=== PATIENT | male | born 1985 | race African-American/Black ===

== ENCOUNTER 2017-05-20 20:36 | Emergency (ER) | payer BC ==
--- NOTE | 2017-05-20 22:09 | RAD ---
RIGHT KNEE RADIOGRAPHS FOUR VIEWS 05/20/17 PROVIDED CLINICAL HISTORY: Right knee pain status post injury. FINDINGS: There is no evidence for fracture or other acute osseous abnormality. 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 There is patella taylor. Alignment appears otherwise anatomic. Joint spaces appear preserved. IMPRESSION: 1. Patella taylor is noted. 2. No evidence for an acute osseous abnormality. POS: [facility]
== END 2017-05-20 21:50 | disposition home or self-care (01) ==
LOC: SCSER 20:36
DX: S83.91XA Sprain of unspecified site of right knee, initial encounter (principal); X50.9XXA Other and unspecified overexertion or strenuous movements or postures, initial encounter; Y93.67 Activity, basketball
CPT/HCPCS: 99406

== ENCOUNTER 2017-07-06 16:26 | Outpatient (CLI) | payer BC | END 2017-07-06 16:27 | disposition home or self-care (01) | LOC: BICMRI 16:26 | PROVIDERS: ATTEND Family Medicine | DX: M25.561 Pain in right knee (principal); M76.51 Patellar tendinitis, right knee; M89.8X8 Other specified disorders of bone, other site ==

== ENCOUNTER 2017-07-08 15:04 | Outpatient (CLI) | payer BC ==
[2017-07-08 15:21] LABS: Hemoglobin 14.9 g/dL (14.0-18.0); Mean Corpuscular HGB CONC 33.2 g/dL (32.0-36.0); Mean Corpuscular Hemoglobin 28.6 pg (27.0-31.0); Mean Corpuscular Volume 86.1 fl (80.0-94.0); Mean Platelet Volume 6.8 fL (7.4-10.4); Platelet Count 274 thou/uL (130-400); RBC Distribution Width 12.7 % (11.5-14.5); White Blood Cell (WBC) Count 7.9 thou/uL (4.8-10.8)
== END 2017-07-08 15:05 | disposition home or self-care (01) ==
LOC: LABBT 15:04
PROVIDERS: ATTEND Orthopaedic Surgery
DX: Z01.818 Encounter for other preprocedural examination (principal)
CPT/HCPCS: 85027

== ENCOUNTER 2017-07-10 06:53 | Observation (INO) | payer BC ==
[2017-07-08 15:20] VITALS: BMI 36.5
[2017-07-10] MEDS ORDERED: Fentanyl 100 MCG/2 ML VIAL ONE ×2 (08:05→09:00)
[2017-07-10] MEDS ORDERED: Midazolam HCl 2 mg/2 ml Vial ONE ×2 (08:05→09:00)
[2017-07-10] MEDS ORDERED: Promethazine HCl 25 MG/ML VIAL IM PRN (08:34)
[2017-07-10] MEDS ORDERED: HYDROcodone/Acetaminophen 10/325 mg Tablet PO PRN (08:34)
[2017-07-10] MEDS ORDERED: Ropivacaine 0.2% 550 ML 550 ML NERVE BLCK SCH (08:34)
[2017-07-10] MEDS ORDERED: CEFAZOLIN/Water 2 GM/20 ML SYRINGE ONE (08:34)
[2017-07-10] MEDS ORDERED: Ketorolac Tromethamine 30 MG/ML VIAL IVP PRN (08:34)
[2017-07-10] MEDS ORDERED: Ondansetron HCl/PF 4 MG/2 ML Vial IVP PRN ×2 (08:34→12:08)
[2017-07-10] MEDS ORDERED: Zolpidem Tartrate 5 MG TAB PO PRN (08:34)
[2017-07-10] MEDS ORDERED: traMADol HCl 50 MG TAB PO PRN ×2 (08:34)
[2017-07-10] MEDS ORDERED: Fentanyl 100 MCG/2 ML VIAL IV PRN (08:35)
[2017-07-10] MEDS ORDERED: Bupivacaine PF 0.5% 30 ML VIAL ONE (09:01)
[2017-07-10] MEDS ORDERED: Vancomycin HCl 1.5 GM in Sodium Chloride 0.9% 250 ML 300 ML IVPB SCH (10:00)
[2017-07-10] MEDS ORDERED: Morphine 10 MG/ML VIAL ONE (10:46)
[2017-07-10] MEDS ORDERED: Acetaminophen 500 MG TAB PO PRN (11:29)
[2017-07-10] MEDS ORDERED: Methocarbamol 500 MG TAB PO PRN (11:29)
[2017-07-10] MEDS ORDERED: Bisacodyl 10 MG SUPP PR PRN (11:29)
[2017-07-10] MEDS ORDERED: Morphine 4 MG/ML Carpuject SLOW IVP PRN ×2 (11:29→12:08)
[2017-07-10] MEDS ORDERED: diphenhydrAMINE 50 MG CAP PO PRN (11:29)
[2017-07-10] MEDS ORDERED: Milk Of Magnesia 30 ML UDCUP PO PRN (11:29)
[2017-07-10] MEDS ORDERED: Non-Formulary Medication 1 EACH PO PRN (12:08)
[2017-07-10] MEDS ORDERED: Morphine Sulfate 2 MG/ML SYRINGE SLOW IVP PRN (12:08)
[2017-07-10] MEDS ORDERED: Promethazine HCl 25 MG/ML VIAL IM/IV PRN (12:08)
[2017-07-10] MEDS ORDERED: Ropivacaine 0.5% HCl/PF (150 MG/30 ML VIAL) ONE (13:57)
[2017-07-10] MEDS ORDERED: Ropivacaine 0.2% HCl/PF (40 MG/20 ML VIAL) ONE (13:57)
[2017-07-10] MEDS ORDERED: diphenhydrAMINE 50 MG/ML VIAL ONE (14:24)
[2017-07-10] MEDS ORDERED: Ketorolac Tromethamine 30 MG/ML VIAL ONE (14:24)
[2017-07-10] MEDS ORDERED: Ondansetron HCl/PF 4 MG/2 ML Vial ONE (14:24)
[2017-07-10] MEDS ORDERED: Lidocaine 1% PF 5 ML VIAL ONE (14:24)
[2017-07-10] MEDS ORDERED: Dexamethasone 20 MG/5 ML VIAL ONE (14:24)
[2017-07-10] MEDS ORDERED: Propofol 200 MG/20 ML VIAL ONE (14:24)
[2017-07-10] MEDS ORDERED: Metoclopramide HCl 10 MG/2 ML VIAL ONE (14:24)
[2017-07-10] MEDS: HYDROcodone/Acetaminophen 10/325 mg Tablet PO PRN ×2 (14:41→20:51)
[2017-07-10] MEDS: CEFAZOLIN/Water 2 GM/20 ML SYRINGE SLOW IVP SCH (18:06)
[2017-07-10] MEDS: Dextrose 5 %-0.45 % NaCl 1,000 ML IV SCH ×2 (18:07→22:40)
[2017-07-10] MEDS: Famotidine 20 MG TAB PO SCH (20:50)
[2017-07-11] MEDS: HYDROcodone/Acetaminophen 10/325 mg Tablet PO PRN ×3 (03:23→11:58)
[2017-07-11] MEDS: CEFAZOLIN/Water 2 GM/20 ML SYRINGE SLOW IVP SCH (03:24)
[2017-07-11] MEDS: Famotidine 20 MG TAB PO SCH (07:59)
[2017-07-11 08:08] VITALS: BP 130/80
[2017-07-11 11:30] VITALS: TEMP 97.9
--- NOTE | 2017-07-11 12:47 | OP ---
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 PROCEDURE PERFORMED: Open repair of chronic patellar tendon rupture with grafting of the patellar te ndon using acellular human dermis graft. SURGEON: Phil Scott M.D. MILD DISABILITIES TEACHER: Robert Nicole PA-C. BLOOD LOSS: Less than 50. COMPLICATIONS: None. ANESTHESIA: He had a general anesthetic. He also had a preoperative block. IMPLANTS: Multiple. Arthrex implants on the patella itself and used 2 BioComposite 4.75 mm SwiveLoc k. On the tibia, we used two BioComposite 4.75 mm SwiveLock. For the graft, we used an Arthrex tia n acellular dermal graft. He went to the recovery room in stable condition. INDICATIONS: A 31-year-old male who was playing basketball at the end of May who finally despit e having no significant pain was wondering why he still could not extend his knee. When he saw his [facility] physician, who ordered an MRI scan, which found him to have a patellar tendon rupture. A t this time, he is presenting for repair. DESCRIPTION OF PROCEDURE: After all appropriate consent forms were explained and signed, he was take n back to the operating room. At this time, he was given general anesthetic. Once anesthesia was ap propriate, the tourniquet was placed on the right thigh. The right lower extremity was then prepped and draped in the standard surgical fashion. The limb was exsanguinated and the tourniquet was taken up to 300 mmHg. Large midline incision was made with a 10 blade down through skin. Bovie was used to coagulate any brisk venous bleeding. At this time, we were able to evaluate the patellar tendon a nd there is tremendous amount of scar tissue and although you could feel or palpate where the defect was. Visualization was limited secondary to the amount of scar tissue. We started to follow from di stal to proximal, proximal to distal using our intact patellar tendon and following these lines down until we could find exactly where this was. We then T'd open the tear using a combination of [place] e levator as well as finger dissection and sharp dissection. Once we were able to go through the ruptu re, the ends were trimmed off of all scar tissue. At this time, we then removed the scarred fat pad which had somewhat calcified behind the tendon in order to allow for definitive motion after the repa ir. At this time, we then took 4 suture tapes placing 2 into proximal and 2 into distal end using lo cking sutures, so that we were able to contain and control both the proximal and distal end of the te ndon tear. Prior to tying these, we raised up our proximal patellar tendon gaining access to the pat ofelia itself and once we cleaned off the bone, we were able to drill, tap, and place two 4.75 mm BioCo mposite SwiveLock anchors. A needle was then used to shuttle these from the undersurface of the tend on, through the tendon to the top of the tendon itself. After doing this, we then pulled tied our duenas tures and held this in place while the sutures were tied together in the middle essentially burying t he knots. Once this was done, our tendon had good contact and this was done with the knee flexed at 90 degrees and using a sandbag for the foot. We then used our suture tapes from 4.75 SwiveLock has a checkrein device by drilling two more holes at the tibial tubercle and once these were drilled and t apped, again 2 more 4.75 mm Arthrex BioComposite SwiveLock were placed. Before placing these, the ta pes from proximally were placed down through the anchor and once appropriately tensioned was tightene d down. This gave us a nice construct with our primary repair backed up by the suture tapes and almo st a double row technique. The free sutures in the middle of all 4 of the SwiveLock were then used t o anchor down a human acellular dermal graft, which was laid on top of our tear site. Once these wer e tied, we then used multiple Vicryls to tie this to soft tissue and essentially circumferentially fo r our final repair. Once this was done, we were able to take the knee through full range of motion. We did not go further then 100 degrees. We were able to go through full extension and 100 degrees w ithout any issue or any gapping. At this time, the wound was thoroughly irrigated and dried. We the n closed in layers using 2-0 Vicryl Stratafix and SurgiSeal glue. A bulky sterile dressing was appli ed and the knee was placed in full extension and locked in a range of motion brace. The patient was then awakened and he was taken to the recovery room in stable condition. All counts were correct at the end of the case and he did receive preoperative IV antibiotics.
== END 2017-07-11 12:18 | disposition home or self-care (01) ==
LOC: SDC 06:53 → SJJU 11:29
PROVIDERS: ADMIT Orthopaedic Surgery; ATTEND Orthopaedic Surgery
PROC: 0LMN0ZZ Reattachment of Right Lower Leg Tendon, Open Approach (ICD-10-PCS; principal; 2017-07-11)
DX: S86.811A Strain of other muscle(s) and tendon(s) at lower leg level, right leg, initial encounter (principal); F17.290 Nicotine dependence, other tobacco product, uncomplicated
CPT/HCPCS: 96374; 96375; 96376; A4306; G0378; G8978-GP-CJ; G8979-GP-CJ; G8980-GP-CJ; J0131; J1100; J1200; J1885; J2001; J2250; J2270; J2405; J2704; J2765; J2795; J3010; J3370; J7050; S0020